=== PATIENT | male | born 1965 | race African-American/Black ===

== ENCOUNTER 2017-09-25 14:21 | Inpatient (IN) | payer OTHER ==
[2017-09-25 14:41] VITALS: BMI 23.3
--- NOTE | 2017-09-25 14:53 | HP ---
COWS - Scale Resting Pulse: 0= [place] 80 or Below Sweatin= Chills/Flushing Restless Observation: 1= Difficult to Sit Still Pupil Size: 1= Pupils >than Normal Bone or Joint Aches: 2= Severe Diffuse Aches Runny Nose/ Eye Tearin= Runny Nose/Eyes GI Upset > 30mins: 1= Stomach Cramp Tremor Observation: 2= Slight Tremor Visible Yawning Observation: 2= >3x During Session Anxiety or Irritability: 2=Irritable/Anxious Goose Flesh Skin: 3=Piloerection COWS Score: 17 Admission ROS S - HPI Chief Complaint: withdrawal sx Allergies/Adverse Reactions: Allergies Allergy/AdvReac Type Severity Reaction Status Date / Time No Known Allergies Allergy Verified 09/25/17 14:52 History of Present Illness: 52 years old male with long history of opiate nicotine dependence has asthma positive ppd is admitted to detox Exam Limitations: No Limitations - Ebola screening Have you traveled outside of the country in the last 21 days: No Have you had contact with anyone from an Ebola affected area: No Have you been sick,other than usual withdrawal symptoms: No Do you have a fever: No - Review of Systems Constitutional: Loss of Appetite, Changes in sleep, Unintentional Wgt. Loss, Unexplained wgt Loss EENT: reports: Blurred Vision (eye glasses) Respiratory: reports: No Symptoms reported Cardiac: reports: No Symptoms Reported GI: reports: Nausea, Poor Appetite, Poor Fluid Intake, Abdominal cramping : reports: No Symptoms Reported Musculoskeletal: reports: Back Pain, Joint Pain, Muscle Pain, Neck Pain Integumentary: reports: No Symptoms Reported Neuro: reports: Tremors Endocrine: reports: No Symptoms Reported Hematology: reports: No Symptoms Reported Psychiatric: reports: Judgement Intact, Mood/Affect Appropiate, Orientated x3 Other Systems: Reviewed and Negative Patient History - Patient Medical History Hx Anemia: No Hx Asthma: Yes (ALBUTEROL INHALER) Hx Chronic Obstructive Pulmonary Disease (COPD): No Hx Cancer: No Hx Cardiac Disorders: No Hx Congestive Heart Failure: No Hx Hypertension: No Hx Hypercholesterolemia: No Hx Pacemaker: No HX Cerebrovascular Accident: No Hx Seizures: No Hx Dementia: No Hx Diabetes: No Hx Gastrointestinal Disorders: No Hx Liver Disease: No Hx Genitourinary Disorders: No Hx Sexually Transmitted Disorders: No Hx Renal Disease (ESRD): No Hx Thyroid Disease: No Hx Human Immunodeficiency Virus (HIV): No (last 10/22 negative) Hx Hepatitis C: No Hx Depression: No Hx Suicide Attempt: No (DENIES) Hx Bipolar Disorder: No Hx Schizophrenia: No - Patient Surgical History Past Surgical History: Yes Hx Neurologic Surgery: No Hx Cataract Extraction: No Hx Cardiac Surgery: No Hx Lung Surgery: No Hx Breast Surgery: No Hx Breast Biopsy: No Hx Abdominal Surgery: Yes (RIGHT INGUINAL HERNIA REPAIR(WITH MESH) 10/2012) Hx Appendectomy: No Hx Cholecystectomy: No Hx Genitourinary Surgery: No Hx Orthopedic Surgery: No Anesthesia Reaction: No - Smoking Cessation Smoking history: Current every day smoker Have you smoked in the past 12 months: Yes Aproximately how many cigarettes per day: 10 Cigars Per Day: 0 Hx Chewing Tobacco Use: No Initiated information on smoking cessation: Yes 'Breaking Loose' booklet given: 09/25/17 - Substance & Tx. History Hx Alcohol Use: No Hx Substance Use: Yes Substance Use Type: Cocaine, Opiates Hx Substance Use Treatment: Yes (2014) Family Disease History - Family Disease History Family Disease History: [place]: Mother (ALCOHOLISM-), Respiratory: Sister, Other: Mother Admission Physical Exam S - Vital Signs Vital Signs: Vital Signs - 24 hr 09/25/17 14:33 Temperature 97.0 F L Pulse Rate 72 Respiratory 18 Rate Blood Pressure 96/67 - Physical General Appearance: Yes: Appropriately Dressed, Moderate Distress, Thin, Tremorous, Irritable, Sweating, Anxious HEENTM: Yes: Hearing grossly Normal, Normal ENT Inspection, Normocephalic, Normal Voice Respiratory: Yes: Chest Non-Tender, Lungs Clear, Normal Breath Sounds, No Respiratory Distress, No Accessory Muscle Use Neck: Yes: Supple, Trachea in good position Breast: Yes: Breasts Symetrical Cardiology: Yes: Regular Rhythm, Regular Rate, S1, S2 Abdominal: Yes: Normal Bowel Sounds, Non Tender, Soft Genitourinary: Yes: Within Normal Limits Back: Yes: Normal Inspection Musculoskeletal: Yes: full range of Motion, Gait Steady, Back pain, Muscle Pain Extremities: Yes: Normal Range of Motion, Tremors Neurological: Yes: Fully Oriented, Alert, Motor Strength 5/5, Normal Response, Depressed Affect Integumentary: Yes: Dry, Warm Lymphatic: Yes: Within Normal Limits - Diagnostic (1) Opioid dependence with withdrawal Current Visit: Yes Status: Acute (2) Positive PPD, treated Current Visit: Yes Status: Resolved (3) Asthma Current Visit: Yes Status: Chronic Qualifiers: Asthma severity: mild Asthma persistence: intermittent Asthma complication type: with status asthmaticus Qualified Code(s): J45.22 - Mild intermittent asthma with status asthmaticus (4) Nicotine dependence Current Visit: Yes Status: Acute Qualifiers: Nicotine product type: cigarettes Substance use status: in withdrawal Qualified Code(s): F17.213 - Nicotine dependence, cigarettes, with withdrawal (5) Weight loss Current Visit: Yes Status: Acute (6) Anxiety-like symptoms Current Visit: Yes Status: Suspected Cleared for Admission BHS - Detox or Rehab S Level of Care: Medically Managed Detox Regimen/Protocol: Methadone BHS Breath Alcohol Content Breath Alcohol Content: 0 Urine Drug Screen - Control Is Test Valid: Yes - Results Drug Screen Negative: No Urine Drug Screen Results: THC-Marijuana, JOSH-Cocaine, OPI-Opiates, MET- Methamphetamine, BAR-Barbiturates
[2017-09-25] MEDS ORDERED: MAGNESIUM HYDROX 2400MG/30ML ORAL SUSPENSION 30 ML CUP PO PRN (15:00)
[2017-09-25] MEDS ORDERED: MENTHOL/PHENOL 1 EACH UD MM PRN (15:00)
[2017-09-25] MEDS ORDERED: ACETAMINOPHEN 325 MG TABLET (FP) PO PRN (15:00)
[2017-09-25] MEDS ORDERED: guaiFENesin/D-METHORPHAN HB 10 ML UNIT-DOSE CUPS PO PRN (15:00)
[2017-09-25] MEDS ORDERED: IBUPROFEN 400 MG TABLET (FP) PO PRN (15:00)
[2017-09-25] MEDS ORDERED: P-EPHED 60MG/TRIPROLIDI 2.5MG TABLET PO PRN (15:00)
[2017-09-25] MEDS ORDERED: MAGNESIUM CITRATE 300 ML BOTTLE PO PRN (15:00)
[2017-09-25] MEDS ORDERED: LOPERAMIDE HCL 2 MG CAPSULE PO PRN (15:00)
[2017-09-25] MEDS ORDERED: ALBUTEROL SO4 18 GM HFA INHALER IH PRN (15:01)
[2017-09-25] MEDS ORDERED: METHADONE HCL 10 MG TABLET (FOR DETOX USE ONLY) PO ONE ×2 (15:50→23:00)
[2017-09-25] MEDS ORDERED: METHADONE HCL 10 MG TABLET (FOR DETOX USE ONLY) ONE (18:17)
[2017-09-25] MEDS: NICOTINE POLACRILEX 2 MG GUM BC PRN (18:18)
[2017-09-25] MEDS: diazePAM 5 MG TABLET PO PRN ×2 (18:19→22:14)
[2017-09-25] MEDS: THIAMINE HCL 100 MG TABLET (FP) PO SCH (22:14)
[2017-09-25 23:39] LABS: URINE APPEARANCE TURBID; URINE BILIRUBIN NEGATIVE (NEGATIVE); URINE BLOOD NEGATIVE (NEGATIVE); URINE COLOR YELLOW; URINE GLUCOSE (UA) NEGATIVE (NEGATIVE); URINE KETONE TRACE (NEGATIVE); URINE LEUK ESTERASE NEGATIVE (NEGATIVE); URINE NITRITE NEGATIVE (NEGATIVE)
[2017-09-25 23:43] LABS: URINE PROTEIN 1+ (NEGATIVE)
[2017-09-25 23:56] LABS: URINE MUCUS MANY
[2017-09-26] MEDS: MAG HYDROX/AL HYDROX/SIMETH 30 ML UNIT-DOSE CUP PO PRN (05:59)
--- NOTE | 2017-09-26 09:47 | CONSULT ---
[facility] Psychiatric Consult - Data Date of interview: 09/26/17 Admission source: [facility] Identifying data: Pt. is a 52 year old single male, father of two, unemployed, homeless, and receiving public assistance. Pt. admitted to detox for cocaine and opiate dependence. Substance Abuse History: - Smoking Cessation. Smoking history: Current every day smoker. Have you smoked in the past 12 months: Yes. Aproximately how many cigarettes per day: 10. Cigars Per Day: 0. Hx Chewing Tobacco Use: No. Initiated information on smoking cessation: Yes. 'Breaking Loose' booklet given : 09/25/17. - Substance & Tx. History. Hx Alcohol Use: No. Hx Substance Use: Yes. Substance Use Type: Cocaine, Opiates. Hx Substance Use Treatment: Yes ( 2014) Medical History: Asthma, RIGHT INGUINAL HERNIA REPAIR(WITH MESH) 10/2012 Psychiatric History: Pt. denies h/o psychiatric hospitalization, outpatient care , and suicide attempt. Physical/Sexual Abuse/Trauma History: Denies. Mental Status Exam - Mental Status Exam Alert and Oriented to: Time, Place, Person Cognitive Function: Good Patient Appearance: Well Groomed Mood: Withdrawn Affect: Mood Congruent Patient Behavior: Guarded Speech Pattern: Delayed Voice Loudness: Moderately Soft/Quiet Thought Process: Goal Oriented Thought Disorder: Not Present Hallucinations: Denies Suicidal Ideation: Denies Homicidal Ideation: Denies Insight/Judgement: Poor Sleep: Fair Appetite: Fair Muscle strength/Tone: Normal Gait/Station: Other (Did not observe patient's gait.) Psychiatric Findings - Problem List ([place] 1, 2,3) (1) Opioid dependence with withdrawal Current Visit: Yes Status: Acute (2) Cocaine dependence Current Visit: Yes Status: Acute (3) Nicotine dependence Current Visit: Yes Status: Acute Qualifiers: Nicotine product type: cigarettes Substance use status: in withdrawal Qualified Code(s): F17.213 - Nicotine dependence, cigarettes, with withdrawal (4) Substance induced mood disorder Current Visit: Yes Status: Suspected - Initial Treatment Plan Initial Treatment Plan: Psychoeducation provided. Detoxification provided. Observation.
[2017-09-26] MEDS ORDERED: METHADONE HCL 10 MG TABLET (FOR DETOX USE ONLY) PO ONE (10:00)
--- NOTE | 2017-09-26 10:16 | PN ---
BHS COWS - Scale Resting Pulse: 1= [place] 81-100 Sweatin= Chills/Flushing Restless Observation: 1= Difficult to Sit Still Pupil Size: 2= Moderately Dilated Bone or Joint Aches: 2= Severe Diffuse Aches Runny Nose/ Eye Tearin= Runny Nose/Eyes GI Upset > 30mins: 1= Stomach Cramp Tremor Observation of Outstretched Hands: 1= Tremor [place], Not Seen Yawning Observation: 2= >3x During Session Anxiety or Irritability: 2=Irritable/Anxious Goose Flesh Skin: 0=Smooth Skin COWS Score: 15 BHS Progress Note (SOAP) Subjective: sweat joint pain muscle cramp anxiety restlessness running nose abdominal cramping Objective: 09/26/17 10:15 Vital Signs Temperature 98 F 09/26/17 09:44 Pulse Rate 78 09/26/17 09:44 Respiratory Rate 18 09/26/17 09:44 Blood Pressure 141/81 09/26/17 09:44 O2 Sat by Pulse Oximetry (%) Laboratory Last Values Urine Color Yellow 09/25/17 18:25 Urine Appearance Turbid 09/25/17 18:25 Urine pH 5.0 (5.0-8.0) 09/25/17 18:25 Ur Specific [place] 1.031 (1.001-1.035) 09/25/17 18:25 Urine Protein 1+ (NEGATIVE) H 09/25/17 18:25 Urine Glucose (UA) Negative (NEGATIVE) 09/25/17 18:25 Urine Ketones Trace (NEGATIVE) H 09/25/17 18:25 Urine Blood Negative (NEGATIVE) 09/25/17 18:25 Urine Nitrite Negative (NEGATIVE) 09/25/17 18:25 Urine Bilirubin Negative (NEGATIVE) 09/25/17 18:25 Urine Urobilinogen 2.0 mg/dL (0.2-1.0) 09/25/17 18:25 Ur Leukocyte Esterase Negative (NEGATIVE) 09/25/17 18:25 Urine WBC (Auto) 4 /hpf (3-5) 09/25/17 18:25 Urine RBC (Auto) 3 /hpf (0-3) 09/25/17 18:25 Urine Mucus Many 09/25/17 18:25 lab noted Assessment: 09/26/17 10:15 withdrawal sx Plan: continue detox
[2017-09-26 10:21] LABS: HEMATOCRIT 35.3 % (35.4-49); HEMOGLOBIN 11.8 GM/dL (11.7-16.9); MCH 29.7 pg (25.7-33.7); MCHC 33.4 g/dl (32.0-35.9); MEAN CELL VOLUME 88.9 fl (80-96); MEAN PLT VOLUME 8.4 fl (7.5-11.1); PLATELET COUNT 169 K/MM3 (134-434); RBC 3.96 M/mm3 (4.00-5.60); WHITE BLOOD COUNT 5.3 K/mm3 (4.0-10.0)
[2017-09-26 10:26] LABS: ANION GAP 1 (8-16); BLOOD UREA NITROGEN 27 mg/dL (7-18); CALCIUM 7.8 mg/dL (8.5-10.1); CHLORIDE 107 mmol/L (98-107); CO2 31 mmol/L (21-32); GLUCOSE,RANDOM 84 mg/dL (74-106); POTASSIUM 4.2 mmol/L (3.5-5.1); SODIUM 139 mmol/L (136-145)
[2017-09-26] MEDS: NICOTINE 14 MG/24 HOURS TOPICAL PATCH TD SCH (10:33)
[2017-09-26] MEDS: PRENATAL VITAMINS W/ FOLIC ACID TABLET (FP) PO SCH (10:33)
[2017-09-26 10:42] LABS: ALK PHOS 63 U/L (45-117); BILIRUBIN,TOTAL 0.2 mg/dL (0.2-1.0); SGOT/AST 13 U/L (15-37); SGPT/ALT 13 U/L (12-78)
[2017-09-26] MEDS: RANITIDINE HCL 150 MG TABLET (FP) PO SCH ×2 (11:18→22:18)
[2017-09-26] MEDS: NICOTINE POLACRILEX 2 MG GUM BC PRN ×2 (17:42→22:19)
[2017-09-26] MEDS: diazePAM 5 MG TABLET PO PRN (22:18)
[2017-09-26] MEDS: THIAMINE HCL 100 MG TABLET (FP) PO SCH (22:18)
--- NOTE | 2017-09-27 00:55 | EKG ---
Test Reason : Blood Pressure : / mmHG Vent. Rate : 070 BPM Atrial Rate : 070 BPM P-R Int : 154 ms QRS Dur : 084 ms QT Int : 376 ms P-R-T Axes : 043 045 025 degrees QTc Int : 406 ms NORMAL SINUS RHYTHM NORMAL ECG NO PREVIOUS ECGS AVAILABLE Confirmed by YOLETTE TATE, COLTEN ([id number]) on 09/27/2017 12:55:13 AM Referred By: Confirmed By:COLTEN DE LA VEGA MD
[2017-09-27] MEDS ORDERED: METHADONE HCL 5 MG TABLET (FOR DETOX USE ONLY) PO ONE (10:00)
--- NOTE | 2017-09-27 10:47 | PN ---
BHS COWS - Scale Resting Pulse: 1= [place] 81-100 Sweatin= Chills/Flushing Restless Observation: 1= Difficult to Sit Still Pupil Size: 0= Normal to Room Light Bone or Joint Aches: 2= Severe Diffuse Aches Runny Nose/ Eye Tearin= Nasal Congestion GI Upset > 30mins: 1= Stomach Cramp Tremor Observation of Outstretched Hands: 2= Slight Tremor Visible Yawning Observation: 2= >3x During Session Anxiety or Irritability: 2=Irritable/Anxious Goose Flesh Skin: 0=Smooth Skin COWS Score: 13 BHS Progress Note (SOAP) Subjective: joint ache muscle pain sweat tremor stuffy nose anxiety restlessness Objective: 09/27/17 10:47 Vital Signs Temperature 98.2 F 09/27/17 10:00 Pulse Rate 73 09/27/17 10:00 Respiratory Rate 20 09/27/17 10:00 Blood Pressure 122/81 09/27/17 10:00 O2 Sat by Pulse Oximetry (%) Laboratory Last Values WBC 5.3 K/mm3 (4.0-10.0) 09/26/17 07:00 RBC 3.96 M/mm3 (4.00-5.60) L 09/26/17 07:00 Hgb 11.8 GM/dL (11.7-16.9) 09/26/17 07:00 Hct 35.3 % (35.4-49) L 09/26/17 07:00 MCV 88.9 fl (80-96) 09/26/17 07:00 MCH 29.7 pg (25.7-33.7) 09/26/17 07:00 MCHC 33.4 g/dl (32.0-35.9) 09/26/17 07:00 RDW 14.0 % (11.9-15.9) 09/26/17 07:00 Plt Count 169 K/MM3 (134-434) D 09/26/17 07:00 MPV 8.4 fl (7.5-11.1) 09/26/17 07:00 Sodium 139 mmol/L (136-145) 09/26/17 07:00 Potassium 4.2 mmol/L (3.5-5.1) 09/26/17 07:00 Chloride 107 mmol/L (98-107) 09/26/17 07:00 Carbon Dioxide 31 mmol/L (21-32) 09/26/17 07:00 Anion Gap 1 (8-16) L 09/26/17 07:00 BUN 27 mg/dL (7-18) H D 09/26/17 07:00 Creatinine 1.0 mg/dL (0.7-1.3) 09/26/17 07:00 Creat Clearance w eGFR > 60 (>60) 09/26/17 07:00 Random Glucose 84 mg/dL (74-106) 09/26/17 07:00 Calcium 7.8 mg/dL (8.5-10.1) L 09/26/17 07:00 Total Bilirubin 0.2 mg/dL (0.2-1.0) 09/26/17 07:00 AST 13 U/L (15-37) L D 09/26/17 07:00 ALT 13 U/L (12-78) D 09/26/17 07:00 Alkaline Phosphatase 63 U/L (45-117) 09/26/17 07:00 Total Protein 6.0 g/dl (6.4-8.2) L 09/26/17 07:00 Albumin 3.0 g/dl (3.4-5.0) L 09/26/17 07:00 Urine Color Yellow 09/25/17 18:25 Urine Appearance Turbid 09/25/17 18:25 Urine pH 5.0 (5.0-8.0) 09/25/17 18:25 Ur Specific [place] 1.031 (1.001-1.035) 09/25/17 18:25 Urine Protein 1+ (NEGATIVE) H 09/25/17 18:25 Urine Glucose (UA) Negative (NEGATIVE) 09/25/17 18:25 Urine Ketones Trace (NEGATIVE) H 09/25/17 18:25 Urine Blood Negative (NEGATIVE) 09/25/17 18:25 Urine Nitrite Negative (NEGATIVE) 09/25/17 18:25 Urine Bilirubin Negative (NEGATIVE) 09/25/17 18:25 Urine Urobilinogen 2.0 mg/dL (0.2-1.0) 09/25/17 18:25 Ur Leukocyte Esterase Negative (NEGATIVE) 09/25/17 18:25 Urine WBC (Auto) 4 /hpf (3-5) 09/25/17 18:25 Urine RBC (Auto) 3 /hpf (0-3) 09/25/17 18:25 Urine Mucus Many 09/25/17 18:25 RPR Titer Nonreactive (NONREACTIVE) 09/26/17 07:00 Hep C Ab Diagnostic 0.2 s/co ratio (0.0-0.9) 09/26/17 07:00 lab noted begin calcium supplement Assessment: 09/27/17 10:48 withdrawal sx 09/27/17 10:49 hypocalcemia Plan: continue detox calcium supplement
[2017-09-27] MEDS: PRENATAL VITAMINS W/ FOLIC ACID TABLET (FP) PO SCH (10:55)
[2017-09-27] MEDS: NICOTINE 14 MG/24 HOURS TOPICAL PATCH TD SCH (10:56)
[2017-09-27] MEDS: RANITIDINE HCL 150 MG TABLET (FP) PO SCH ×2 (10:57→22:39)
[2017-09-27] MEDS: CALCIUM CARBONATE 650 MG TABLET PO SCH (11:42)
[2017-09-27] MEDS: NICOTINE POLACRILEX 2 MG GUM BC PRN (20:44)
[2017-09-27] MEDS: diazePAM 5 MG TABLET PO PRN (22:37)
[2017-09-27] MEDS: THIAMINE HCL 100 MG TABLET (FP) PO SCH (22:39)
[2017-09-28] MEDS ORDERED: METHADONE HCL 5 MG TABLET (FOR DETOX USE ONLY) PO ONE (10:00)
[2017-09-28] MEDS: PRENATAL VITAMINS W/ FOLIC ACID TABLET (FP) PO SCH (10:15)
[2017-09-28] MEDS: RANITIDINE HCL 150 MG TABLET (FP) PO SCH ×2 (10:15→23:02)
[2017-09-28] MEDS: CALCIUM CARBONATE 650 MG TABLET PO SCH (10:16)
[2017-09-28] MEDS: NICOTINE 14 MG/24 HOURS TOPICAL PATCH TD SCH (10:16)
[2017-09-28] MEDS: MAG HYDROX/AL HYDROX/SIMETH 30 ML UNIT-DOSE CUP PO PRN (10:18)
--- NOTE | 2017-09-28 11:55 | PN ---
BHS Progress Note (SOAP) Subjective: joint pain muscle ache sweat tremor restlessness anxiety stuffy nose Objective: 09/28/17 11:53 Vital Signs Temperature 98.1 F 09/28/17 10:00 Pulse Rate 76 09/28/17 10:00 Respiratory Rate 18 09/28/17 10:00 Blood Pressure 127/75 09/28/17 10:00 O2 Sat by Pulse Oximetry (%) Laboratory Last Values WBC 5.3 K/mm3 (4.0-10.0) 09/26/17 07:00 RBC 3.96 M/mm3 (4.00-5.60) L 09/26/17 07:00 Hgb 11.8 GM/dL (11.7-16.9) 09/26/17 07:00 Hct 35.3 % (35.4-49) L 09/26/17 07:00 MCV 88.9 fl (80-96) 09/26/17 07:00 MCH 29.7 pg (25.7-33.7) 09/26/17 07:00 MCHC 33.4 g/dl (32.0-35.9) 09/26/17 07:00 RDW 14.0 % (11.9-15.9) 09/26/17 07:00 Plt Count 169 K/MM3 (134-434) D 09/26/17 07:00 MPV 8.4 fl (7.5-11.1) 09/26/17 07:00 Sodium 139 mmol/L (136-145) 09/26/17 07:00 Potassium 4.2 mmol/L (3.5-5.1) 09/26/17 07:00 Chloride 107 mmol/L (98-107) 09/26/17 07:00 Carbon Dioxide 31 mmol/L (21-32) 09/26/17 07:00 Anion Gap 1 (8-16) L 09/26/17 07:00 BUN 27 mg/dL (7-18) H D 09/26/17 07:00 Creatinine 1.0 mg/dL (0.7-1.3) 09/26/17 07:00 Creat Clearance w eGFR > 60 (>60) 09/26/17 07:00 Random Glucose 84 mg/dL (74-106) 09/26/17 07:00 Calcium 7.8 mg/dL (8.5-10.1) L 09/26/17 07:00 Total Bilirubin 0.2 mg/dL (0.2-1.0) 09/26/17 07:00 AST 13 U/L (15-37) L D 09/26/17 07:00 ALT 13 U/L (12-78) D 09/26/17 07:00 Alkaline Phosphatase 63 U/L (45-117) 09/26/17 07:00 Total Protein 6.0 g/dl (6.4-8.2) L 09/26/17 07:00 Albumin 3.0 g/dl (3.4-5.0) L 09/26/17 07:00 Urine Color Yellow 09/25/17 18:25 Urine Appearance Turbid 09/25/17 18:25 Urine pH 5.0 (5.0-8.0) 09/25/17 18:25 Ur Specific [place] 1.031 (1.001-1.035) 09/25/17 18:25 Urine Protein 1+ (NEGATIVE) H 09/25/17 18:25 Urine Glucose (UA) Negative (NEGATIVE) 09/25/17 18:25 Urine Ketones Trace (NEGATIVE) H 09/25/17 18:25 Urine Blood Negative (NEGATIVE) 09/25/17 18:25 Urine Nitrite Negative (NEGATIVE) 09/25/17 18:25 Urine Bilirubin Negative (NEGATIVE) 09/25/17 18:25 Urine Urobilinogen 2.0 mg/dL (0.2-1.0) 09/25/17 18:25 Ur Leukocyte Esterase Negative (NEGATIVE) 09/25/17 18:25 Urine WBC (Auto) 4 /hpf (3-5) 09/25/17 18:25 Urine RBC (Auto) 3 /hpf (0-3) 09/25/17 18:25 Urine Mucus Many 09/25/17 18:25 RPR Titer Nonreactive (NONREACTIVE) 09/26/17 07:00 Hep C Ab Diagnostic 0.2 s/co ratio (0.0-0.9) 09/26/17 07:00 lab noted Assessment: 09/28/17 11:54 withdrawal sx Plan: continue detox
[2017-09-28] MEDS: THIAMINE HCL 100 MG TABLET (FP) PO SCH (23:01)
[2017-09-29] MEDS ORDERED: METHADONE HCL 10 MG TABLET (FOR DETOX USE ONLY) PO ONE (10:00)
--- NOTE | 2017-09-29 10:26 | PN ---
BHS Progress Note (SOAP) Subjective: interrupted sleep, Objective: 09/29/17 10:24 Vital Signs Temperature 98.1 F 09/29/17 09:34 Pulse Rate 71 09/29/17 09:34 Respiratory Rate 18 09/29/17 09:34 Blood Pressure 112/80 09/29/17 09:34 O2 Sat by Pulse Oximetry (%) Laboratory Tests 09/25/17 09/26/17 09/26/17 18:25 07:00 07:00 WBC 5.3 RBC 3.96 L Hgb 11.8 Hct 35.3 L MCV 88.9 MCH 29.7 MCHC 33.4 RDW 14.0 Plt Count 169 D MPV 8.4 Sodium 139 Potassium 4.2 Chloride 107 Carbon Dioxide 31 Anion Gap 1 L BUN 27 H D Creatinine 1.0 Creat Clearance w eGFR > 60 Random Glucose 84 Calcium 7.8 L Total Bilirubin 0.2 AST 13 L D ALT 13 D Alkaline Phosphatase 63 Total Protein 6.0 L Albumin 3.0 L Urine Color Yellow Urine Appearance Turbid Urine pH 5.0 Ur Specific [place] 1.031 Urine Protein 1+ H Urine Glucose (UA) Negative Urine Ketones Trace H Urine Blood Negative Urine Nitrite Negative Urine Bilirubin Negative Urine Urobilinogen 2.0 Ur Leukocyte Esterase Negative Urine WBC (Auto) 4 Urine RBC (Auto) 3 Urine Mucus Many RPR Titer Hep C Ab Diagnostic 09/26/17 09/26/17 07:00 07:00 WBC RBC Hgb Hct MCV MCH MCHC RDW Plt Count MPV Sodium Potassium Chloride Carbon Dioxide Anion Gap BUN Creatinine Creat Clearance w eGFR Random Glucose Calcium Total Bilirubin AST ALT Alkaline Phosphatase Total Protein Albumin Urine Color Urine Appearance Urine pH Ur Specific [place] Urine Protein Urine Glucose (UA) Urine Ketones Urine Blood Urine Nitrite Urine Bilirubin Urine Urobilinogen Ur Leukocyte Esterase Urine WBC (Auto) Urine RBC (Auto) Urine Mucus RPR Titer Nonreactive Hep C Ab Diagnostic 0.2 pt aox3 in nad ambulating Assessment: 09/29/17 10:25 withdrawal sx's Plan: cont. detox increase fluids
[2017-09-29] MEDS: RANITIDINE HCL 150 MG TABLET (FP) PO SCH ×2 (10:33→21:52)
[2017-09-29] MEDS: PRENATAL VITAMINS W/ FOLIC ACID TABLET (FP) PO SCH (10:33)
[2017-09-29] MEDS: NICOTINE 14 MG/24 HOURS TOPICAL PATCH TD SCH (10:34)
[2017-09-29] MEDS: CALCIUM CARBONATE 650 MG TABLET PO SCH (10:34)
[2017-09-29] MEDS: NICOTINE POLACRILEX 2 MG GUM BC PRN ×2 (14:28→21:53)
[2017-09-29] MEDS: THIAMINE HCL 100 MG TABLET (FP) PO SCH (21:52)
[2017-09-30] MEDS ORDERED: METHADONE HCL 5 MG TABLET (FOR DETOX USE ONLY) PO ONE (06:00)
[2017-09-30 09:47] VITALS: BP 109/73; PULSE 72; TEMP 98.2
--- NOTE | 2017-09-30 15:11 | PN ---
S Progress Note (SOAP) Subjective: feels okay no new complaint Objective: 09/30/17 15:10 A & O x 3 gait steady Vital Signs Temperature 98.2 F 09/30/17 09:46 Pulse Rate 72 09/30/17 09:46 Respiratory Rate 14 09/30/17 09:46 Blood Pressure 109/73 09/30/17 09:46 O2 Sat by Pulse Oximetry (%) Assessment: 09/30/17 15:10 detox successfully completed Plan: for d/c
--- NOTE | 2017-09-30 15:16 | DS ---
[facility] Detox Discharge Summary Admission Date: 09/25/17 Discharge Date: 09/30/17 - History Additional Comments: pt going home states he intends to do rehab at [facility] - Physical Exam Results Vital Signs: Vital Signs Temperature 98.2 F 09/30/17 09:46 Pulse Rate 72 09/30/17 09:46 Respiratory Rate 14 09/30/17 09:46 Blood Pressure 109/73 09/30/17 09:46 O2 Sat by Pulse Oximetry (%) Pertinent Admission Physical Exam Findings: withdrawal sx - Treatment Hospital Course: Detox Protocol Followed, Detoxed Safely, Responded well, Discharged Condition Good, Rehab Referral Accepted Patient has Accepted a Rehab Referral to: [facility] - Medication Discharge Medications: Ambulatory Orders Albuterol Sulfate Inhaler - [Ventolin HFA Inhaler -] 2 inh PO Q4H PRN 01/06/14 - Diagnosis (1) Opioid dependence, uncomplicated Status: Acute (2) Nicotine dependence Status: Chronic Qualifiers: Nicotine product type: cigarettes Substance use status: in withdrawal Qualified Code(s): F17.213 - Nicotine dependence, cigarettes, with withdrawal (3) Cannabis dependence Status: Acute (4) Weight loss Status: Acute (5) Asthma Status: Chronic Qualifiers: Asthma severity: mild Asthma persistence: intermittent Asthma complication type: with status asthmaticus Qualified Code(s): J45.22 - Mild intermittent asthma with status asthmaticus (6) Cocaine dependence Status: Chronic Qualifiers: Substance use status: uncomplicated Qualified Code(s): F14.20 - Cocaine dependence, uncomplicated (7) Substance induced mood disorder Status: Suspected - AMA Did Patient Leave Against Medical Advice: No
== END 2017-09-30 10:10 | disposition home or self-care (01) | DRG 773 ==
LOC: YASAS 14:21 → Y6N 15:46
PROVIDERS: ADMIT Internal Medicine; ATTEND Internal Medicine
PROC: HZ2ZZZZ Detoxification Services for Substance Abuse Treatment (ICD-10-PCS; principal; 2017-09-25)
DX: F11.20 Opioid dependence, uncomplicated (principal); F14.20 Cocaine dependence, uncomplicated; F12.20 Cannabis dependence, uncomplicated; F17.210 Nicotine dependence, cigarettes, uncomplicated; F19.24 Other psychoactive substance dependence with psychoactive substance-induced mood disorder; F41.9 Anxiety disorder, unspecified; J45.22 Mild intermittent asthma with status asthmaticus; R76.11 Nonspecific reaction to tuberculin skin test without active tuberculosis; R63.4 Abnormal weight loss; Z68.23 Body mass index [BMI] 23.0-23.9, adult
CPT/HCPCS: 36415; 71046-TC-FY; 80053; 81003; 81015; 85027; 86593; 93005; 93010

== ENCOUNTER 2018-07-04 12:55 | Inpatient (IN) | payer OTHER ==
[2018-07-04 15:17] VITALS: BMI 22.4
--- NOTE | 2018-07-04 18:42 | HP ---
COWS - Scale Resting Pulse: 0= [place] 80 or Below Sweatin=Flushed/Facial Moisture Restless Observation: 0= Sits Still Pupil Size: 2= Moderately Dilated (Pupils = 6 mm) Bone or Joint Aches: 1= Mild Discomfort Runny Nose/ Eye Tearin= Runny Nose/Eyes GI Upset > 30mins: 3= Vomiting/Diarrhea (Vomiting w/o diarrhea) Tremor Observation: 2= Slight Tremor Visible Yawning Observation: 1= 1-2x During Session Anxiety or Irritability: 0= None Goose Flesh Skin: 0=Smooth Skin COWS Score: 13 CIWA Score - Admission Criteria [facility]ASAS Guidelines: Admission for Medically Managed Detox: Requires at least one of the followin. CIWA greater than 12 2. Seizures within the past 24 hours 3. Delirium tremens within the past 24 hours 4. Hallucinations within the past 24 hours 5. Acute intervention needed for co occurring medical disorder 6. Acute intervention needed for co occurring psychiatric disorder 7. Severe withdrawal that cannot be handled at a lower level of care (continued vomiting, continued diarrhea, abnormal vital signs) requiring intravenous medication and/or fluids 8. Admission [facility] Chief Complaint: Here for heroin detox. I'm having withdrawal symptoms. Allergies/Adverse Reactions: Allergies Allergy/AdvReac Type Severity Reaction Status Date / Time No Known Allergies Allergy Verified 07/04/18 17:45 History of Present Illness: Here for heroin detox. Heroin use began at age 33. Cocaine use began at age 33. Nicotine use began at age 19. Marijuana use began at age 15. States minimal alcohol use and frequency. Hx asthma - last exacerbation May 2018 - states SOB w/ wheezing. Hx PPD positive - states rx'd in 1992 w/INH and B-12. CXR @ [facility] 09/26/17 - negative Denies other significant PMH. Longest length of sobriety 4 years - going to . () Denies hx seizures, blackouts, overdoses. Patient Name: Jefferson Fitzgerald Date: 1965 Address: [address] [place] [address] Sex: Male Rx Written Rx Dispensed Drug Quantity Days Supply Prescriber Name 05/09/2018 05/09/2018 methadone hcl 10 mg tablet 11 6 Inés Pedroza 02/28/2018 02/28/2018 methadone hcl 10 mg tablet 2 1 Inés Pedroza 02/26/2018 02/26/2018 methadone hcl 10 mg tablet 9 3 Trina Olivier [place] Patient Name: Jefferson Fitzgerald Date: 1965 Address: [address] [place] [address] Sex: Male Rx Written Rx Dispensed Drug Quantity Days Supply Prescriber Name 02/16/2018 02/16/2018 suboxone 8 mg-2 mg sl film 28 14 Octaviano Thayer Patient Name: Jefferson Fitzgerald Date: 1965 Address: [facility] [id number] [address] Sex: Male Rx Written Rx Dispensed Drug Quantity Days Supply Prescriber Name 01/26/2018 01/29/2018 suboxone 8 mg-2 mg sl film 28 14 Octaviano Thayer Exam Limitations: No Limitations - Ebola screening Have you traveled outside of the country in the last 21 days: No (N) Have you had contact with anyone from an Ebola affected area: No Have you been sick,other than usual withdrawal symptoms: No Do you have a fever: No - Review of Systems Constitutional: Chills, Diaphoresis, Changes in sleep (Difficulty falling asleep ) EENT: reports: Blurred Vision, Nose Congestion Respiratory: reports: No Symptoms reported (Last asthma exacerbation May 2018; Denies coughing up blood.) Cardiac: reports: No Symptoms Reported GI: reports: Nausea, Vomiting : reports: Other (States sometimes has difficulty initiating flow.) Musculoskeletal: reports: Back Pain (r/t withdrawal) Integumentary: reports: No Symptoms Reported Neuro: reports: Tingling (In finger tips) Endocrine: reports: No Symptoms Reported Hematology: reports: No Symptoms Reported Psychiatric: reports: Judgement Intact, Mood/Affect Appropiate, Orientated x3 Patient History - Patient Medical History Hx Anemia: No Hx Asthma: Yes (ALBUTEROL INHALER) Hx Chronic Obstructive Pulmonary Disease (COPD): No Hx Cancer: No Hx Cardiac Disorders: No Hx Congestive Heart Failure: No Hx Hypertension: No Hx Hypercholesterolemia: No Hx Pacemaker: No HX Cerebrovascular Accident: No Hx Seizures: No Hx Dementia: No Hx Diabetes: No Hx Gastrointestinal Disorders: No Hx Liver Disease: No Hx Genitourinary Disorders: No Hx Sexually Transmitted Disorders: No Hx Renal Disease (ESRD): No Hx Thyroid Disease: No Hx Human Immunodeficiency Virus (HIV): No (last 10/22 negative) Hx Hepatitis C: No Hx Depression: No Hx Suicide Attempt: No (DENIES) Hx Bipolar Disorder: No Hx Schizophrenia: No - Patient Surgical History Past Surgical History: Yes Hx Neurologic Surgery: No Hx Cataract Extraction: No Hx Cardiac Surgery: No Hx Lung Surgery: No Hx Breast Surgery: No Hx Breast Biopsy: No Hx Abdominal Surgery: Yes (RIGHT INGUINAL HERNIA REPAIR(WITH MESH) 10/2012) Hx Appendectomy: No Hx Cholecystectomy: No Hx Genitourinary Surgery: No Hx Section: No Hx Orthopedic Surgery: No Other Surgical History: right inguinal hernia repair in 10/2012 Anesthesia Reaction: No - PPD History Previous Implant?: Yes Documented Results: Positive w/o proof (States received INH and B-12 in 1992) Implanted On Prior R Admission?: No Date: 09/26/17 (CXR @ [facility] - negative) PPD to be Administered?: No - Smoking Cessation Smoking history: Current every day smoker Have you smoked in the past 12 months: Yes Aproximately how many cigarettes per day: 10 Cigars Per Day: 0 Hx Chewing Tobacco Use: No Initiated information on smoking cessation: Yes 'Breaking Loose' booklet given: 07/04/18 - Substance & Tx. History Hx Alcohol Use: No Hx Substance Use: Yes Substance Use Type: Cocaine, Heroin, Marijuana Hx Substance Use Treatment: Yes (detoxes, rehab, ) - Substances Abused Heroin Route: SNIFF Frequency: Daily Amount used: 8 BAGS Age of first use: 33 Date of Last Use: 07/04/18 Cocaine Route: Smoking Frequency: Daily Amount used: $20 Age of first use: 33 Date of Last Use: 07/04/18 Marijuana/Hashish Route: Inhalation Frequency: 1-3 times last 30 days Age of first use: 15 Date of Last Use: 07/02/18 Family Disease History - Family Disease History Family Disease History: CA: Mother (ALCOHOLISM-), Respiratory: Sister, Other: Mother Admission Physical Exam S - Vital Signs Vital Signs: Vital Signs - 24 hr 07/04/18 15:16 Temperature 98.2 F Pulse Rate 74 Respiratory 20 Rate Blood Pressure 103/71 - Physical General Appearance: Yes: Nourished, Appropriately Dressed, Mild Distress, Tremorous (Mild tremorsfelt in hands), Sweating HEENTM: Yes: EOMI, Hearing grossly Normal, Normocephalic, CHARIS (Pupils = 6 mm), Pharynx Normal, Rhinorrhea Respiratory: Yes: Lungs Clear, Normal Breath Sounds, No Respiratory Distress Neck: Yes: No masses,lesions,Nodules, Supple Breast: Yes: Breast Exam Deferred Cardiology: Yes: Regular Rhythm, Regular Rate, S1, S2 Abdominal: Yes: Non Tender, Flat, Soft, Increased Bowel Sounds Genitourinary: Yes: Within Normal Limits Back: Yes: Normal Inspection Musculoskeletal: Yes: full range of Motion, Gait Steady Extremities: Yes: Normal Capillary Refill, Normal Range of Motion, Non-Tender, Tremors (Mild tremors visible in hands), Swelling (Bilateral pedal edema toes to below ankles.Cap refill < 3 sec. Pedal pulses (+).) Neurological: Yes: hog scraper II-XII NML intact, Fully Oriented, Alert, Motor Strength 5/5, Normal Mood/Affect Integumentary: Yes: Normal Color, Dry (Decreased skin turgor), Warm, Other ( Mottled, whitish skin on toes and bottom of feet, w/ cracks noted on several toes w/o exudate.) - Diagnostic (1) Cannabis dependence Current Visit: Yes Status: Chronic (2) Cocaine dependence Current Visit: Yes Status: Chronic Qualifiers: Substance use status: uncomplicated Qualified Code(s): F14.20 - Cocaine dependence, uncomplicated (3) Nicotine dependence Current Visit: Yes Status: Chronic Qualifiers: Nicotine product type: cigarettes Substance use status: uncomplicated Qualified Code(s): F17.210 - Nicotine dependence, cigarettes, uncomplicated (4) Opioid dependence with withdrawal Current Visit: Yes Status: Acute (5) Positive PPD, treated Current Visit: No Status: Resolved Comment: CXR @ [facility] on 09/26/17 negative (6) Asthma Current Visit: No Status: Chronic Qualifiers: Asthma severity: mild Asthma persistence: intermittent Asthma complication type: uncomplicated Qualified Code(s): J45.20 - Mild intermittent asthma, uncomplicated (7) Dehydration Current Visit: Yes Status: Acute (8) Tinea pedis Current Visit: Yes Status: Chronic Qualifiers: Laterality: bilateral Qualified Code(s): B35.3 - Tinea pedis Cleared for Admission S - Detox or Rehab [facility] Level of Care: Medically Managed Detox Regimen/Protocol: Methadone [facility] Breath Alcohol Content Breath Alcohol Content: 0 Urine Drug Screen - Results Drug Screen Negative: No Urine Drug Screen Results: THC-Marijuana, JOSH-Cocaine, OPI-Opiates
[2018-07-04] MEDS ORDERED: NICOTINE POLACRILEX 2 MG GUM BUC PRN (19:23)
[2018-07-04] MEDS ORDERED: LOPERAMIDE HCL 2 MG CAPSULE PO PRN (19:23)
[2018-07-04] MEDS ORDERED: MAGNESIUM CITRATE 300 ML BOTTLE PO PRN (19:23)
[2018-07-04] MEDS ORDERED: METHADONE HCL 10 MG TABLET (FOR DETOX USE ONLY) PO ONE ×2 (19:23→23:00)
[2018-07-04] MEDS ORDERED: MAGNESIUM HYDROX 2400MG/30ML ORAL SUSPENSION 30 ML CUP PO PRN (19:23)
[2018-07-04] MEDS ORDERED: MENTHOL/PHENOL 1 EACH UD MM PRN (19:23)
[2018-07-04] MEDS ORDERED: MAG HYDROX/AL HYDROX/SIMETH 30 ML UNIT-DOSE CUP PO PRN (19:23)
[2018-07-04] MEDS ORDERED: ALBUTEROL SO4 0.083% IH SOL 2.5 MG/3 ML VIAL.NEB. NEB PRN (19:27)
[2018-07-04] MEDS: diazePAM 5 MG TABLET PO PRN (20:07)
[2018-07-04] MEDS: TOLNAFTATE 1% CREAM 15 GM TUBE TP SCH (22:53)
[2018-07-04] MEDS: THIAMINE HCL 100 MG TABLET (FP) PO SCH (22:54)
[2018-07-05 01:43] LABS: URINE APPEARANCE CLEAR; URINE BILIRUBIN NEGATIVE (<2.0 mg/dL); URINE COLOR YELLOW; URINE GLUCOSE (UA) NEGATIVE (NEGATIVE); URINE KETONE NEGATIVE (NEGATIVE); URINE LEUK ESTERASE NEGATIVE (NEGATIVE); URINE NITRITE NEGATIVE (NEGATIVE); URINE PROTEIN NEGATIVE (NEGATIVE); URINE UROBILINOGEN NEGATIVE mg/dL (0.2-1.0)
--- NOTE | 2018-07-05 09:49 | PN ---
[facility] COWS - Scale Resting Pulse: 0= [place] 80 or Below Sweatin= Chills/Flushing Restless Observation: 0= Sits Still Pupil Size: 1= Pupils >than Normal Bone or Joint Aches: 2= Severe Diffuse Aches Runny Nose/ Eye Tearin= Nasal Congestion GI Upset > 30mins: 2= Nausea/Diarrhea Tremor Observation of Outstretched Hands: 2= Slight Tremor Visible Yawning Observation: 1= 1-2x During Session Anxiety or Irritability: 2=Irritable/Anxious Goose Flesh Skin: 0=Smooth Skin COWS Score: 12 [facility] Progress Note (SOAP) Subjective: body aches joints pain muscle cramp tremor sweat irritable agitative at time Objective: 07/05/18 09:48 Vital Signs Temperature 96.3 F L 07/05/18 09:17 Pulse Rate 78 07/05/18 09:17 Respiratory Rate 18 07/05/18 09:17 Blood Pressure 129/73 07/05/18 09:17 O2 Sat by Pulse Oximetry (%) Laboratory Last Values Urine Color Yellow 07/04/18 22:25 Urine Appearance Clear 07/04/18 22:25 Urine pH 7.0 (5.0-8.0) D 07/04/18 22:25 Ur Specific [place] 1.024 (1.010-1.035) 07/04/18 22:25 Urine Protein Negative (NEGATIVE) 07/04/18 22:25 Urine Glucose (UA) Negative (NEGATIVE) 07/04/18 22:25 Urine Ketones Negative (NEGATIVE) 07/04/18 22:25 Urine Blood Negative (NEGATIVE) 07/04/18 22:25 Urine Nitrite Negative (NEGATIVE) 07/04/18 22:25 Urine Bilirubin Negative (<2.0 mg/dL) 07/04/18 22:25 Urine Urobilinogen Negative mg/dL (0.2-1.0) 07/04/18 22:25 Ur Leukocyte Esterase Negative (NEGATIVE) 07/04/18 22:25 lab noted Assessment: 07/05/18 09:48 withdrawal sx Plan: continue detox
[2018-07-05] MEDS ORDERED: METHADONE HCL 10 MG TABLET (FOR DETOX USE ONLY) PO ONE (10:00)
[2018-07-05] MEDS: TOLNAFTATE 1% CREAM 15 GM TUBE TP SCH ×2 (10:14→22:13)
[2018-07-05] MEDS: PRENATAL VITAMINS W/ FOLIC ACID TABLET (FP) PO SCH (10:15)
[2018-07-05] MEDS: NICOTINE 21 MG/24 HOURS TOPICAL PATCH TD SCH (10:16)
[2018-07-05 11:05] LABS: HEMATOCRIT 35.5 % (35.4-49); HEMOGLOBIN 12.4 GM/dL (11.7-16.9); MCH 30.7 pg (25.7-33.7); MCHC 34.9 g/dl (32.0-35.9); MEAN PLT VOLUME 8.3 fl (7.5-11.1); PLATELET COUNT 188 K/MM3 (134-434); RBC 4.04 M/mm3 (4.00-5.60); RDW 14.9 % (11.9-15.9); WHITE BLOOD COUNT 6.4 K/mm3 (4.0-10.0)
[2018-07-05 11:31] LABS: ALBUMIN 2.5 g/dl (3.4-5.0); ALK PHOS 63 U/L (45-117); ANION GAP 5 MMOL/L (8-16); BILIRUBIN,TOTAL 0.5 mg/dL (0.2-1); BLOOD UREA NITROGEN 15 mg/dL (7-18); CALCIUM 7.7 mg/dL (8.5-10.1); CHLORIDE 106 mmol/L (98-107); CO2 30 mmol/L (21-32); CREATININE 0.8 mg/dL (0.55-1.3); GLUCOSE,RANDOM 78 mg/dL (74-106); POTASSIUM 3.9 mmol/L (3.5-5.1); SGOT/AST 18 U/L (15-37); SGPT/ALT 19 U/L (13-61); SODIUM 141 mmol/L (136-145); TOT PROT 5.4 g/dl (6.4-8.2)
[2018-07-05] MEDS: THIAMINE HCL 100 MG TABLET (FP) PO SCH (22:13)
[2018-07-05] MEDS: diazePAM 5 MG TABLET PO PRN (22:14)
[2018-07-06] MEDS: diazePAM 5 MG TABLET PO PRN ×3 (05:47→22:23)
[2018-07-06] MEDS: ACETAMINOPHEN 325 MG TABLET (FP) PO PRN ×2 (07:45→17:29)
[2018-07-06] MEDS ORDERED: MENTHOL/PHENOL 1 EACH UD MM PRN (08:00)
[2018-07-06] MEDS: P-EPHED 60MG/TRIPROLIDI 2.5MG TABLET PO PRN (08:53)
[2018-07-06] MEDS: guaiFENesin/D-METHORPHAN HB 10 ML UNIT-DOSE CUPS PO PRN ×2 (08:53→17:31)
[2018-07-06] MEDS ORDERED: METHADONE HCL 5 MG TABLET (FOR DETOX USE ONLY) PO ONE (10:00)
--- NOTE | 2018-07-06 10:11 | CONSULT ---
[facility] Psychiatric Consult - Data Date of interview: 07/06/18 Admission source: [facility] Identifying data: Readmission to [facility] for this 52 y/o AA male seeking detoxification treatment, on , for heroin, cocaine and heroin dependence. Patient is single, a father of two, domiciled, unemployed, deprived of income and supported by relatives. Substance Abuse History: Confirmed by the patient in this interview. Details in current [facility] report : Smoking history: Current every day smoker. Have you smoked in the past 12 months: Yes. Aproximately how many cigarettes per day: 10. Cigars Per Day: 0. Hx Chewing Tobacco Use: No. Initiated information on smoking cessation: Yes. 'Breaking Loose' booklet given: 07/04/18. - Substance & Tx. History. Hx Alcohol Use: No. Hx Substance Use: Yes. Substance Use Type : Cocaine, Heroin, Marijuana. Hx Substance Use Treatment: Yes (detoxes, rehab, ). - Substances Abused. Heroin. Route: SNIFF. Frequency: Daily. Amount used: 8 BAGS. Age of first use: 33. Date of Last Use: 07/04/18. Cocaine. Route: Smoking. Frequency: Daily. Amount used: $20. Age of first use: 33. Date of Last Use: 07/04/18. Marijuana/Hashish. Route: Inhalation. Frequency: 1-3 times last 30 days. Age of first use: 15. Date of Last Use: Medical History: Remarkable for bronchial asthma, PPD positive status (treated with INH + B6) and a history of right inguinal herniorraphy (2012). Psychiatric History: Patient denies history of psychiatric hospitalizations, past exposure to psychotropic medications, OPD care or suicide attempts. Physical/Sexual Abuse/Trauma History: Patient denies. Additional Comment: Urine Drug Screen Results: THC-Marijuana, JOSH-Cocaine, OPI- Opiates. Noted. Mental Status Exam - Mental Status Exam Alert and Oriented to: Time, Place, Person Cognitive Function: Good Patient Appearance: Well Groomed (small stature) Mood: Nervous, Withdrawn Affect: Mood Congruent, Constricted Patient Behavior: Fatigued, Appropriate, Cooperative Speech Pattern: Clear Voice Loudness: Normal Thought Process: Goal Oriented Thought Disorder: Not Present Hallucinations: Denies Suicidal Ideation: Denies Homicidal Ideation: Denies Insight/Judgement: Poor Sleep: Poorly, Difficulty falling asleep Appetite: Good Muscle strength/Tone: Normal Gait/Station: Normal Psychiatric Findings - Problem List ([place] 1, 2,3) (1) Opioid dependence with withdrawal Current Visit: Yes Status: Acute (2) Cannabis dependence Current Visit: Yes Status: Chronic (3) Cocaine dependence Current Visit: Yes Status: Chronic Qualifiers: Substance use status: uncomplicated Qualified Code(s): F14.20 - Cocaine dependence, uncomplicated (4) Nicotine dependence Current Visit: Yes Status: Chronic Qualifiers: Nicotine product type: cigarettes Substance use status: uncomplicated Qualified Code(s): F17.210 - Nicotine dependence, cigarettes, uncomplicated (5) Insomnia Current Visit: Yes Status: Acute - Initial Treatment Plan Initial Treatment Plan: Psychoeducation. Sleep hygiene. Detoxification in progress. Support. NA meetings. Motivational rounds to promote abstinence. Relapse prevention for opioid use disorder : MAT (medication-assisted treatment) , NA fellowship, counseling, psychotherapy are discussed with the patient. Insomnia is addressed with melatonin at bedside. Patient is in agreement with this plan of care. Observation.
[2018-07-06] MEDS: NICOTINE 21 MG/24 HOURS TOPICAL PATCH TD SCH (10:32)
[2018-07-06] MEDS: PRENATAL VITAMINS W/ FOLIC ACID TABLET (FP) PO SCH (10:32)
[2018-07-06] MEDS: TOLNAFTATE 1% CREAM 15 GM TUBE TP SCH ×2 (10:33→22:21)
--- NOTE | 2018-07-06 14:18 | PN ---
[facility] COWS - Scale Resting Pulse: 1= [place] 81-100 Sweatin= Chills/Flushing Restless Observation: 1= Difficult to Sit Still Pupil Size: 2= Moderately Dilated Bone or Joint Aches: 1= Mild Discomfort Runny Nose/ Eye Tearin= Runny Nose/Eyes GI Upset > 30mins: 2= Nausea/Diarrhea Tremor Observation of Outstretched Hands: 0= None Yawning Observation: 0= None Anxiety or Irritability: 2=Irritable/Anxious Goose Flesh Skin: 0=Smooth Skin COWS Score: 12 [facility] Progress Note (SOAP) Subjective: PATIENT C/O ANXIETY, NASAL CONGESTION, SWEATING, NAUSEA AND DIARRHEA. Objective: 07/06/18 14:16 Vital Signs Temperature 99.1 F 07/06/18 09:21 Pulse Rate 96 H 07/06/18 09:21 Respiratory Rate 19 07/06/18 09:21 Blood Pressure 108/70 07/06/18 09:21 O2 Sat by Pulse Oximetry (%) Laboratory Tests 07/04/18 07/05/18 07/05/18 22:25 07:00 07:00 WBC 6.4 RBC 4.04 Hgb 12.4 Hct 35.5 MCV 88.0 MCH 30.7 MCHC 34.9 RDW 14.9 Plt Count 188 MPV 8.3 Sodium 141 Potassium 3.9 Chloride 106 Carbon Dioxide 30 Anion Gap 5 L BUN 15 Creatinine 0.8 Creat Clearance w eGFR > 60 Random Glucose 78 Calcium 7.7 L Total Bilirubin 0.5 AST 18 ALT 19 Alkaline Phosphatase 63 Total Protein 5.4 L Albumin 2.5 L Urine Color Yellow Urine Appearance Clear Urine pH 7.0 D Ur Specific [place] 1.024 Urine Protein Negative Urine Glucose (UA) Negative Urine Ketones Negative Urine Blood Negative Urine Nitrite Negative Urine Bilirubin Negative Urine Urobilinogen Negative Ur Leukocyte Esterase Negative RPR Titer 07/05/18 07:00 WBC RBC Hgb Hct MCV MCH MCHC RDW Plt Count MPV Sodium Potassium Chloride Carbon Dioxide Anion Gap BUN Creatinine Creat Clearance w eGFR Random Glucose Calcium Total Bilirubin AST ALT Alkaline Phosphatase Total Protein Albumin Urine Color Urine Appearance Urine pH Ur Specific [place] Urine Protein Urine Glucose (UA) Urine Ketones Urine Blood Urine Nitrite Urine Bilirubin Urine Urobilinogen Ur Leukocyte Esterase RPR Titer Nonreactive PE: ALERT AND ORIENTED X 3 SKIN + BEADS OF SWEAT ON FOREHEAD +NASAL CONGESTION EXT FULL ROM, NO EDEMA AMB AD PRAVEEN ANXIOUS Assessment: 07/06/18 14:18 WITHDRAWAL SX Plan: CONTINUE DETOX ENCOURAGE ORAL FLUIDS CONTINUE TO MONITOR
[2018-07-06] MEDS: IBUPROFEN 400 MG TABLET (FP) PO PRN (19:42)
[2018-07-06] MEDS ORDERED: MELATONIN 5 MG TABLETS PO PRN (22:00)
[2018-07-06] MEDS ORDERED: ONDANSETRON *ODT* 4 MG TABLET SL PRN (22:17)
[2018-07-06] MEDS: THIAMINE HCL 100 MG TABLET (FP) PO SCH (22:21)
--- NOTE | 2018-07-06 22:24 | PN ---
[facility] Progress Note (SOAP) Subjective: c/o nausea, sweating, and feeling ill. States having bad withdrawal symptoms. Objective: A&O x 3. Diaphoretic. Abd S/NT/BS+ Lungs CTA. Throat w/o lesions or exudate. Vital Signs - 24 hr 07/06/18 07/06/18 07/06/18 00:30 03:30 06:24 Temperature 101 F H Pulse Rate 86 Respiratory 18 18 18 Rate Blood Pressure 115/76 07/06/18 07/06/18 07/06/18 09:21 15:04 18:00 Temperature 99.1 F 99.2 F 101.7 F H Pulse Rate 96 H 99 H 95 H Respiratory 19 19 18 Rate Blood Pressure 108/70 144/88 117/79 Laboratory Last Values WBC 6.4 K/mm3 (4.0-10.0) 07/05/18 07:00 RBC 4.04 M/mm3 (4.00-5.60) 07/05/18 07:00 Hgb 12.4 GM/dL (11.7-16.9) 07/05/18 07:00 Hct 35.5 % (35.4-49) 07/05/18 07:00 MCV 88.0 fl (80-96) 07/05/18 07:00 MCH 30.7 pg (25.7-33.7) 07/05/18 07:00 MCHC 34.9 g/dl (32.0-35.9) 07/05/18 07:00 RDW 14.9 % (11.9-15.9) 07/05/18 07:00 Plt Count 188 K/MM3 (134-434) 07/05/18 07:00 MPV 8.3 fl (7.5-11.1) 07/05/18 07:00 Sodium 141 mmol/L (136-145) 07/05/18 07:00 Potassium 3.9 mmol/L (3.5-5.1) 07/05/18 07:00 Chloride 106 mmol/L (98-107) 07/05/18 07:00 Carbon Dioxide 30 mmol/L (21-32) 07/05/18 07:00 Anion Gap 5 MMOL/L (8-16) L 07/05/18 07:00 BUN 15 mg/dL (7-18) 07/05/18 07:00 Creatinine 0.8 mg/dL (0.55-1.3) 07/05/18 07:00 Creat Clearance w eGFR > 60 (>60) 07/05/18 07:00 Random Glucose 78 mg/dL (74-106) 07/05/18 07:00 Calcium 7.7 mg/dL (8.5-10.1) L 07/05/18 07:00 Total Bilirubin 0.5 mg/dL (0.2-1) 07/05/18 07:00 AST 18 U/L (15-37) 07/05/18 07:00 ALT 19 U/L (13-61) 07/05/18 07:00 Alkaline Phosphatase 63 U/L (45-117) 07/05/18 07:00 Total Protein 5.4 g/dl (6.4-8.2) L 07/05/18 07:00 Albumin 2.5 g/dl (3.4-5.0) L 07/05/18 07:00 Urine Color Yellow 07/04/18 22:25 Urine Appearance Clear 07/04/18 22:25 Urine pH 7.0 (5.0-8.0) D 07/04/18 22:25 Ur Specific [place] 1.024 (1.010-1.035) 07/04/18 22:25 Urine Protein Negative (NEGATIVE) 07/04/18 22:25 Urine Glucose (UA) Negative (NEGATIVE) 07/04/18 22:25 Urine Ketones Negative (NEGATIVE) 07/04/18 22:25 Urine Blood Negative (NEGATIVE) 07/04/18 22:25 Urine Nitrite Negative (NEGATIVE) 07/04/18 22:25 Urine Bilirubin Negative (<2.0 mg/dL) 07/04/18 22:25 Urine Urobilinogen Negative mg/dL (0.2-1.0) 07/04/18 22:25 Ur Leukocyte Esterase Negative (NEGATIVE) 07/04/18 22:25 RPR Titer Nonreactive (NONREACTIVE) 07/05/18 07:00 Labs reviewed. Assessment: Opiate withdrawal. Plan: Enccourage increased water intake. Zofran for nausea. Encouraged to take Valium.
[2018-07-07] MEDS: IBUPROFEN 400 MG TABLET (FP) PO PRN (06:06)
[2018-07-07] MEDS ORDERED: METHADONE HCL 5 MG TABLET (FOR DETOX USE ONLY) PO ONE (10:00)
[2018-07-07] MEDS: TOLNAFTATE 1% CREAM 15 GM TUBE TP SCH ×2 (10:22→22:33)
[2018-07-07] MEDS: guaiFENesin/D-METHORPHAN HB 10 ML UNIT-DOSE CUPS PO PRN ×2 (10:22→20:23)
[2018-07-07] MEDS: PRENATAL VITAMINS W/ FOLIC ACID TABLET (FP) PO SCH (10:22)
[2018-07-07] MEDS: NICOTINE 21 MG/24 HOURS TOPICAL PATCH TD SCH (10:22)
[2018-07-07] MEDS: ACETAMINOPHEN 325 MG TABLET (FP) PO PRN ×2 (10:23→20:16)
[2018-07-07] MEDS: P-EPHED 60MG/TRIPROLIDI 2.5MG TABLET PO PRN ×2 (10:24→20:22)
[2018-07-07 11:40] LABS: ALBUMIN 2.8 g/dl (3.4-5.0); ALK PHOS 67 U/L (45-117); ANION GAP 6 MMOL/L (8-16); BILIRUBIN,TOTAL 0.2 mg/dL (0.2-1); BLOOD UREA NITROGEN 8 mg/dL (7-18); CALCIUM 7.9 mg/dL (8.5-10.1); CHLORIDE 103 mmol/L (98-107); CO2 29 mmol/L (21-32); CREATININE 0.7 mg/dL (0.55-1.3); GLUCOSE,RANDOM 88 mg/dL (74-106); SGOT/AST 24 U/L (15-37); SGPT/ALT 25 U/L (13-61); SODIUM 137 mmol/L (136-145); TOT PROT 6.1 g/dl (6.4-8.2)
[2018-07-07] MEDS ORDERED: TRIMETHOBENZAMIDE HCL 200MG/2ML INJ IM PRN (12:06)
[2018-07-07] MEDS ORDERED: COLLOIDAL OATMEAL 1 BAR EACH TP PRN (12:07)
[2018-07-07] MEDS ORDERED: AMMONIUM LACTATE 12% LOTION 225 GM BOTTLE TP SCH (12:15)
--- NOTE | 2018-07-07 17:27 | PN ---
[facility] Progress Note (SOAP) Subjective: Tremors, Stomach Cramping, H/A, Fatigue, Interrupted Sleep, Vomiting, Sweating, Body Aches. Objective: PATIENT A & O X 3. IN NO ACUTE DISTRESS. 07/07/18 17:25 Vital Signs Temperature 96.9 F L 07/07/18 15:08 Pulse Rate 72 07/07/18 15:08 Respiratory Rate 20 07/07/18 15:08 Blood Pressure 115/62 07/07/18 15:08 O2 Sat by Pulse Oximetry (%) Laboratory Tests 07/04/18 07/05/18 07/05/18 22:25 07:00 07:00 WBC 6.4 RBC 4.04 Hgb 12.4 Hct 35.5 MCV 88.0 MCH 30.7 MCHC 34.9 RDW 14.9 Plt Count 188 MPV 8.3 Sodium 141 Potassium 3.9 Chloride 106 Carbon Dioxide 30 Anion Gap 5 L BUN 15 Creatinine 0.8 Creat Clearance w eGFR > 60 Random Glucose 78 Calcium 7.7 L Total Bilirubin 0.5 AST 18 ALT 19 Alkaline Phosphatase 63 Total Protein 5.4 L Albumin 2.5 L Urine Color Yellow Urine Appearance Clear Urine pH 7.[address] 1.024 Urine Protein Negative Urine Glucose (UA) Negative Urine Ketones Negative Urine Blood Negative Urine Nitrite Negative Urine Bilirubin Negative Urine Urobilinogen Negative Ur Leukocyte Esterase Negative RPR Titer 07/05/18 07/07/18 07:00 07:30 WBC RBC Hgb Hct MCV MCH MCHC RDW Plt Count MPV Sodium 137 Potassium 4.0 Chloride 103 Carbon Dioxide 29 Anion Gap 6 L BUN 8 Creatinine 0.7 Creat Clearance w eGFR > 60 Random Glucose 88 Calcium 7.9 L Total Bilirubin 0.2 AST 24 ALT 25 Alkaline Phosphatase 67 Total Protein 6.1 L Albumin 2.8 L Urine Color Urine Appearance Urine pH Ur Specific [address] Urine Protein Urine Glucose (UA) Urine Ketones Urine Blood Urine Nitrite Urine Bilirubin Urine Urobilinogen Ur Leukocyte Esterase RPR Titer Nonreactive LABS NOTED. Assessment: 07/07/18 17:26 WITHDRAWAL SYMPTOMS.
[2018-07-07] MEDS: MELATONIN 5 MG TABLETS PO PRN (22:34)
[2018-07-07] MEDS: THIAMINE HCL 100 MG TABLET (FP) PO SCH (22:34)
[2018-07-08] MEDS ORDERED: METHADONE HCL 10 MG TABLET (FOR DETOX USE ONLY) PO ONE (10:00)
[2018-07-08] MEDS: guaiFENesin/D-METHORPHAN HB 10 ML UNIT-DOSE CUPS PO PRN (10:34)
[2018-07-08] MEDS: TOLNAFTATE 1% CREAM 15 GM TUBE TP SCH ×2 (10:34→22:07)
[2018-07-08] MEDS: PRENATAL VITAMINS W/ FOLIC ACID TABLET (FP) PO SCH (10:34)
[2018-07-08] MEDS: NICOTINE 21 MG/24 HOURS TOPICAL PATCH TD SCH (10:34)
[2018-07-08] MEDS: P-EPHED 60MG/TRIPROLIDI 2.5MG TABLET PO PRN (10:35)
--- NOTE | 2018-07-08 16:44 | PN ---
[facility] Progress Note (SOAP) Subjective: Chills, nausea, sweating, tremor, interrupted sleep Objective: 07/08/18 16:39 Last Vital Signs Temp Pulse Resp BP Pulse Ox 96.7 F L 68 18 111/72 07/08/18 13:16 07/08/18 13:16 07/08/18 13:16 07/08/18 13:16 Laboratory Tests 07/04/18 07/05/18 07/05/18 22:25 07:00 07:00 WBC 6.4 RBC 4.04 Hgb 12.4 Hct 35.5 MCV 88.0 MCH 30.7 MCHC 34.9 RDW 14.9 Plt Count 188 MPV 8.3 Sodium 141 Potassium 3.9 Chloride 106 Carbon Dioxide 30 Anion Gap 5 L BUN 15 Creatinine 0.8 Creat Clearance w eGFR > 60 Random Glucose 78 Calcium 7.7 L Total Bilirubin 0.5 AST 18 ALT 19 Alkaline Phosphatase 63 Total Protein 5.4 L Albumin 2.5 L Urine Color Yellow Urine Appearance Clear Urine pH 7.0 D Ur Specific [place] 1.024 Urine Protein Negative Urine Glucose (UA) Negative Urine Ketones Negative Urine Blood Negative Urine Nitrite Negative Urine Bilirubin Negative Urine Urobilinogen Negative Ur Leukocyte Esterase Negative RPR Titer 07/05/18 07/07/18 07:00 07:30 WBC RBC Hgb Hct MCV MCH MCHC RDW Plt Count MPV Sodium 137 Potassium 4.0 Chloride 103 Carbon Dioxide 29 Anion Gap 6 L BUN 8 Creatinine 0.7 Creat Clearance w eGFR > 60 Random Glucose 88 Calcium 7.9 L Total Bilirubin 0.2 AST 24 ALT 25 Alkaline Phosphatase 67 Total Protein 6.1 L Albumin 2.8 L Urine Color Urine Appearance Urine pH Ur Specific [place] Urine Protein Urine Glucose (UA) Urine Ketones Urine Blood Urine Nitrite Urine Bilirubin Urine Urobilinogen Ur Leukocyte Esterase RPR Titer Nonreactive Labs reviewed: calcium 7.9 Assessment: 07/08/18 16:40 Withdrawal symptoms Hypocalcemia noted Plan: Continue detox Encouraged PO water hydration Hypocalcemia: start calcium carbonate 650mg PO bid Patient is for discharge tomorrow but will hold discharge due to increased withdrawal symptoms
[2018-07-08] MEDS: IBUPROFEN 400 MG TABLET (FP) PO PRN (17:17)
[2018-07-08] MEDS ORDERED: CALCIUM CARBONATE 650 MG TABLET PO SCH (22:00)
[2018-07-08] MEDS: THIAMINE HCL 100 MG TABLET (FP) PO SCH (22:06)
[2018-07-08] MEDS: MELATONIN 5 MG TABLETS PO PRN (22:07)
[2018-07-09] MEDS: IBUPROFEN 400 MG TABLET (FP) PO PRN (05:29)
[2018-07-09] MEDS ORDERED: METHADONE HCL 5 MG TABLET (FOR DETOX USE ONLY) PO ONE (06:00)
[2018-07-09 06:13] VITALS: BP 112/61; PULSE 76
[2018-07-09 07:40] VITALS: TEMP 98.5
--- NOTE | 2018-07-09 13:12 | DS ---
[facility] Detox Discharge Summary Admission Date: 07/04/18 Discharge Date: 07/09/18 - History Present History: Opioid Dependence Additional Comments: 52 years old male admitted on 07/04/18 for opiate withdrawal stabilization completed detox regimen tolerated well alert no acute distress aftercare [facility] - Physical Exam Results Vital Signs: Vital Signs Temperature 98.5 F 07/09/18 07:39 Pulse Rate 76 07/09/18 06:12 Respiratory Rate 18 07/09/18 06:12 Blood Pressure 112/61 07/09/18 06:12 O2 Sat by Pulse Oximetry (%) Pertinent Admission Physical Exam Findings: opiate withdrawal sx Laboratory Last Values WBC 6.4 K/mm3 (4.0-10.0) 07/05/18 07:00 RBC 4.04 M/mm3 (4.00-5.60) 07/05/18 07:00 Hgb 12.4 GM/dL (11.7-16.9) 07/05/18 07:00 Hct 35.5 % (35.4-49) 07/05/18 07:00 MCV 88.0 fl (80-96) 07/05/18 07:00 MCH 30.7 pg (25.7-33.7) 07/05/18 07:00 MCHC 34.9 g/dl (32.0-35.9) 07/05/18 07:00 RDW 14.9 % (11.9-15.9) 07/05/18 07:00 Plt Count 188 K/MM3 (134-434) 07/05/18 07:00 MPV 8.3 fl (7.5-11.1) 07/05/18 07:00 Sodium 137 mmol/L (136-145) 07/07/18 07:30 Potassium 4.0 mmol/L (3.5-5.1) 07/07/18 07:30 Chloride 103 mmol/L (98-107) 07/07/18 07:30 Carbon Dioxide 29 mmol/L (21-32) 07/07/18 07:30 Anion Gap 6 MMOL/L (8-16) L 07/07/18 07:30 BUN 8 mg/dL (7-18) 07/07/18 07:30 Creatinine 0.7 mg/dL (0.55-1.3) 07/07/18 07:30 Creat Clearance w eGFR > 60 (>60) 07/07/18 07:30 Random Glucose 88 mg/dL (74-106) 07/07/18 07:30 Calcium 7.9 mg/dL (8.5-10.1) L 07/07/18 07:30 Total Bilirubin 0.2 mg/dL (0.2-1) 07/07/18 07:30 AST 24 U/L (15-37) 07/07/18 07:30 ALT 25 U/L (13-61) 07/07/18 07:30 Alkaline Phosphatase 67 U/L (45-117) 07/07/18 07:30 Total Protein 6.1 g/dl (6.4-8.2) L 07/07/18 07:30 Albumin 2.8 g/dl (3.4-5.0) L 07/07/18 07:30 Urine Color Yellow 07/04/18 22:25 Urine Appearance Clear 07/04/18 22:25 Urine pH 7.0 (5.0-8.0) D 07/04/18 22:25 Ur Specific [place] 1.024 (1.010-1.035) 07/04/18 22:25 Urine Protein Negative (NEGATIVE) 07/04/18 22:25 Urine Glucose (UA) Negative (NEGATIVE) 07/04/18 22:25 Urine Ketones Negative (NEGATIVE) 07/04/18 22:25 Urine Blood Negative (NEGATIVE) 07/04/18 22:25 Urine Nitrite Negative (NEGATIVE) 07/04/18 22:25 Urine Bilirubin Negative (<2.0 mg/dL) 07/04/18 22:25 Urine Urobilinogen Negative mg/dL (0.2-1.0) 07/04/18 22:25 Ur Leukocyte Esterase Negative (NEGATIVE) 07/04/18 22:25 RPR Titer Nonreactive (NONREACTIVE) 07/05/18 07:00 lab noted calcium rich food - Treatment Hospital Course: Detox Protocol Followed, Detoxed Safely, Responded well, Discharged Condition Good, Rehab Referral Accepted Patient has Accepted a Rehab Referral to: [facility] - Medication Discharge Medications: Ambulatory Orders Albuterol Sulfate Inhaler - [Ventolin HFA Inhaler -] 2 inh PO Q4H PRN #1 inhaler 07/09/18 - Diagnosis (1) Hypocalcemia Status: Chronic (2) Opioid dependence with withdrawal Status: Acute (3) Weight loss Status: Acute (4) Asthma Status: Chronic Qualifiers: Asthma severity: mild Asthma persistence: intermittent Asthma complication type: uncomplicated Qualified Code(s): J45.20 - Mild intermittent asthma, uncomplicated (5) Nicotine dependence Status: Acute Qualifiers: Nicotine product type: cigarettes Substance use status: in withdrawal Qualified Code(s): F17.213 - Nicotine dependence, cigarettes, with withdrawal (6) Positive PPD, treated Status: Resolved (7) Substance induced mood disorder Status: Suspected - AMA Did Patient Leave Against Medical Advice: No
== END 2018-07-09 10:00 | disposition home or self-care (01) | DRG 773 ==
LOC: YASAS 12:55 → Y3N 18:34
PROC: HZ2ZZZZ Detoxification Services for Substance Abuse Treatment (ICD-10-PCS; principal; 2018-07-04)
DX: F11.23 Opioid dependence with withdrawal (principal); F14.20 Cocaine dependence, uncomplicated; F12.20 Cannabis dependence, uncomplicated; F17.213 Nicotine dependence, cigarettes, with withdrawal; F19.24 Other psychoactive substance dependence with psychoactive substance-induced mood disorder; B35.3 Tinea pedis; E83.51 Hypocalcemia; J45.20 Mild intermittent asthma, uncomplicated; G47.00 Insomnia, unspecified; E86.0 Dehydration; R76.11 Nonspecific reaction to tuberculin skin test without active tuberculosis; R63.4 Abnormal weight loss; Z68.22 Body mass index [BMI] 22.0-22.9, adult
CPT/HCPCS: 36415; 71046-TC-FY; 80053; 81003; 85027; 86593